=== PATIENT | female | born 1950 | race Caucasian/White ===

== ENCOUNTER 2019-07-15 14:56 | Observation (INO) | payer MEDICARE, BC, OTHER ==
[~2019-07-15] VITALS: Ht 167.6 cm; Wt 124.7 kg
[~2019-07-15 14:56] MED LIST: ARTHRITIS MED; ASPI325 PO; ASPI81CH PO; ATOR10 PO; BP MED; BUSP10 PO; CEPH500 PO; CHOL10002 PO; CLON.5 PO; DICL75ER PO; ERGO400 PO; EXTRA STRENGTH500 MG PO; Esgic Tablet1 EACH PO; GABA300 PO; HYDR1TAB94 PO; IRON; IRON150C PO; OMEP40CA12 PO; OXYACE5T PO; PRED20 PO; Protonix40 MG PO; ROXICODONE5 MG PO; SERT25 PO; SERT50 PO; SOLI5 PO; SULTRIDS PO; UBID100 PO; Vesicare10 MG PO; ZORVOLEX35 MG PO; [UNRECOGNIZED DRUG - OTHER] PO; [UNRECOGNIZED DRUG - OTHER] PO
[2019-07-15 15:45] LABS: BASOPHILS ABSOLUTE AUTO 0.06 K/mm3 (0.00-0.23); BASOPHILS PERCENT AUTO 1 % (0-2); EOSINOPHILS ABSOLUTE AUTO 0.43 K/mm3 (0.00-0.68); EOSINOPHILS PERCENT AUTO 5 % (0-6); Hematocrit 39.8 % (33.0-51.0); Hemoglobin 12.7 g/dL (11.5-16.0); IMMATURE GRAN ABSOLUTE AUTO 0.02 K/mm3 (0.00-0.10); IMMATURE GRAN PERCENT AUTO 0 % (0-1); LYMPHOCYTES ABSOLUTE AUTO 3.51 K/mm3 (0.84-5.20); LYMPHOCYTES PERCENT AUTO 44 % (21-46); MONOCYTES ABSOLUTE AUTO 0.64 K/mm3 (0.16-1.47); MONOCYTES PERCENT AUTO 8 % (4-13); Mean Corpuscular HGB 28.1 pg (26.0-34.0); Mean Corpuscular HGB Conc 31.9 g/dL (31.5-36.5); Mean Corpuscular Volume 88 fL (80-100); Mean Platelet Volume 11.8 fL (9.1-12.4); NEUTROPHILS ABSOLUTE AUTO 3.24 K/mm3 (1.96-9.15); NEUTROPHILS PERCENT AUTO 41 % (41-73); Platelet Count 266 K/mm3 (150-400); RDW Coefficient Variation 14.1 % (11.7-14.2); RDW Standard Deviation 45.4 fL (35.1-46.3); Red Blood Cell Count 4.52 M/mm3 (3.80-5.20)
[2019-07-15 16:08] LABS: Alanine Aminotransfer (ALT/SGP 31 U/L (12-78); Albumin, Blood 3.7 g/dL (3.4-5.0); Alk Phos 118 U/L (50-136); Anion Gap 9 mmol/L (6-16); Aspartate Aminotrans (AST/SGOT 23 U/L (12-37); Bilirubin, Total 0.6 mg/dL (0.1-1.0); Blood Urea Nitrogen 19 mg/dL (8-24); Bun/Creatinine Ratio 20.1 (12.0-20.0); CO2, Blood 27 mmol/L (21-32); Chloride, Blood 104 mmol/L (98-108); Creatinine, Blood 0.95 mg/dL (0.40-1.00); Globulin, Blood 3.8 g/dL (2.2-4.0); Glomerular Filtration Rate >60 (60-); Glucose, Blood 95 mg/dL (70-99); Potassium, Blood 4.1 mmol/L (3.5-5.5); Sodium, Blood 140 mmol/L (136-145); Total Protein, Blood 7.5 g/dL (6.4-8.2); Troponin I <0.015 ng/mL (0.000-0.040)
[2019-07-15] MEDS ORDERED: Cymbalta20 MG PO (19:01)
[2019-07-15] MEDS ORDERED: WATER PILL (19:02)
[2019-07-15] MEDS ORDERED: HYDCHL25 PO (20:08)
[2019-07-15] MEDS ORDERED: DULO60 PO (20:08)
[2019-07-15] MEDS ORDERED: CYAN500 PO (20:09)
[2019-07-15] MEDS ORDERED: FERSU300 PO (20:09)
[2019-07-15] MEDS ORDERED: Aspirin EC81 MG PO (20:09)
[2019-07-15] MEDS ORDERED: Prilosec Otc20 MG PO (20:09)
[2019-07-15] MEDS ORDERED: CALCIUM 600 +1 EA11 PO (20:09)
--- NOTE | 2019-07-16 04:49 | NUR ---
SUMMARY PT HAS BEEN STABLE SINCE ADMISSION TO THE FLOOR. SHE HAS DENIED CP, C/O HEADACHE AND A SMALL AMOUNT OF CHEST PRESSURE. TYLENOL WAS ORDERED AND GIVEN. VSS. NITRO PATCH WAS PLACED TO R CHEST WALL BY [employer] OPERATOR. PT IS RESTING COMFORTABLY AT THIS TIME. CALL LIGHT IN REACH. WCTM
[2019-07-16 06:00] LABS: CHOL/HDL RATIO 3.2; Cholesterol 209 mg/dL (50-200); HDL Cholesterol 65 mg/dL (>39); LDL/HDL RATIO 1.9; Low Density Lipoprotein Chol 126 mg/dL (0-110); Triglycerides 90 mg/dL (30-160); Troponin I <0.015 ng/mL (0.000-0.040); Very Low Density Lipoprot Chol 18 mg/dL (6-32)
--- NOTE | 2019-07-16 17:53 | NUR ---
PT HAS BEEN A/O THROUGHOUT THE SHIFT. PT HAD THE FIRST PORTION OF STRESS TEST COMPLETED THIS AM. PT HAS AMBULATED IN THE [place] ON OWN DURING THIS SHIFT. PT UP IN CHAIR FOR PORTION OF THE SHIFT. PT'S IN ROOM MULTIPLE TIMES DURING THIS SHIFT. PT STATES NO FURTHER NEEDS AT THIS TIME. WILL CONTINUE TO MONITOR.
--- NOTE | 2019-07-17 04:09 | NUR ---
SHIFT SUMMARY PT HAS HAD NO COMPLAINTS OF CHEST PAIN THIS SHIFT. SHE HAS RESTED FOR MOST OF THE NIGHT. SHE HAS BEEN INDEPENDENT IN THE ROOM, UP AND AMBULATING IN THE HALLWAY. SHE DENIES NAUSEA, OR SOB. ALL OTHER SYSTEMS NEGATIVE. NSR ON TELE. SECOND PORTION OF STRESS TEST TO BE DONE TODAY. PT NPO. NO ACUTE CHANGES. WILL CONTINUE TO MONITOR AND REPORT TO ONCOMING RN.
[2019-07-17 04:48] LABS: Albumin, Blood 3.2 g/dL (3.4-5.0); Anion Gap 3 mmol/L (6-16); Blood Urea Nitrogen 18 mg/dL (8-24); Bun/Creatinine Ratio 19.9 (12.0-20.0); CO2, Blood 30 mmol/L (21-32); Calcium, Blood 8.7 mg/dL (8.5-10.1); Chloride, Blood 108 mmol/L (98-108); Glomerular Filtration Rate >60 (60-); Glucose, Blood 103 mg/dL (70-99); Potassium, Blood 4.7 mmol/L (3.5-5.5); Sodium, Blood 141 mmol/L (136-145)
[2019-07-17] MEDS ORDERED: Lipitor20 MG PO (14:29)
--- NOTE | 2019-07-17 14:42 | NUR ---
DISCHARGE: PT EATING AND DRINKING, VOIDING. PT CONT TO DENY CP/SOB. PT HAS HAD STUDIES COMPLETED EARLIER TODAY. PT REPORTS UNDERSTANDING OF DISCHARGE INSTRUCTIONS. PT IV OUT WNL. FAMILY HERE TO GIVE PT RIDE HOME.
== END 2019-07-17 14:55 | disposition home or self-care (01) ==
LOC: ER 14:56 → MEDS 14:57 → ENPENDDIS 07-17 13:28 → MEDS 07-17 14:55
PROVIDERS: Internal Medicine; Nurse Practitioner Acute Care; Physician Assistant; ADMIT Hospitalist
DX: R07.9 Chest pain, unspecified (principal); I10 Essential (primary) hypertension; K21.9 Gastro-esophageal reflux disease without esophagitis; E78.5 Hyperlipidemia, unspecified; F32.9 Major depressive disorder, single episode, unspecified; E66.01 Morbid (severe) obesity due to excess calories; Z68.41 Body mass index [BMI] 40.0-44.9, adult; Z79.899 Other long term (current) drug therapy
CPT/HCPCS: 36415; 71046; 78452; 80053; 80061; 80069; 83880; 84484; 85025; 93005; 93010; 93017; 99285-25; A9270; A9500; G0378; J2785

== ENCOUNTER 2019-08-29 07:44 | Day surgery (SDC) | payer MEDICARE, BC, OTHER ==
[~2019-08-29 07:44] MED LIST changes: +Aspirin EC81 MG PO; +CALCIUM 600 +1 EA11 PO; +CYAN500 PO; +Cymbalta20 MG PO; +DULO60 PO; +FERSU300 PO; +HYDCHL25 PO; +Lipitor20 MG PO; +Prilosec Otc20 MG PO; +WATER PILL
--- NOTE | 2019-08-29 09:25 | NUR ---
PT INTO DAY SURGERY FOR CTA. SINGLE DOSE IV METOPROLOL GIVEN PER ORDERS TO DECREASE HEART RATE TO DESIRED RANGE. TOLERATED PROCEDURE WELL. OUT OF UNIT INDEPENDENTLY. AWAITING SPOUSE. Patient up to Ambulate independently. Gait steady.
== END 2019-08-29 22:37 | disposition home or self-care (01) ==
LOC: CT 07:44 → ORD 07:44 → CT 09:00 → ORD 22:37
DX: I25.10 Atherosclerotic heart disease of native coronary artery without angina pectoris (principal); I10 Essential (primary) hypertension; E66.01 Morbid (severe) obesity due to excess calories; Z79.899 Other long term (current) drug therapy; Z79.82 Long term (current) use of aspirin; Z91.040 Latex allergy status; Z98.84 Bariatric surgery status; Z68.41 Body mass index [BMI] 40.0-44.9, adult
CPT/HCPCS: 75574; Q9967

== ENCOUNTER 2019-11-29 06:38 | Day surgery (SDC) | payer MEDICARE, BC, OTHER ==
[~2019-11-29] VITALS: Ht 170.2 cm; Wt 127.9 kg
[~2019-11-29 06:38] MED LIST changes: +FERATE240 MG PO; +OMEPRAZOLE20 MG PO; +VITAMIN B122500 MCG PO; +VITAMIN D350000 UNIT PO
== END 2019-11-29 08:18 | disposition home or self-care (01) ==
LOC: ORSCSDS 06:38
PROVIDERS: Ophthalmology
PROC: 08RJ3JZ Replacement of Right Lens with Synthetic Substitute, Percutaneous Approach (ICD-10-PCS; principal; 2019-11-29 08:00)
DX: H25.11 Age-related nuclear cataract, right eye (principal); Z86.73 Personal history of transient ischemic attack (TIA), and cerebral infarction without residual deficits; E78.00 Pure hypercholesterolemia, unspecified; I10 Essential (primary) hypertension; Z79.82 Long term (current) use of aspirin; Z79.899 Other long term (current) drug therapy
CPT/HCPCS: J2250; J3010; V2632

== ENCOUNTER 2022-02-04 07:55 | Day surgery (SDC) | payer MEDICARE, BC, OTHER ==
[~2022-02-04] VITALS: Ht 167.6 cm; Wt 145.3 kg
== END 2022-02-04 09:26 | disposition home or self-care (01) ==
LOC: ORSCSDS 07:55
PROVIDERS: Anesthesiology
PROC: 3E0R3BZ Introduction of Anesthetic Agent into Spinal Canal, Percutaneous Approach (ICD-10-PCS; principal; 2022-02-04 09:00)
DX: M54.16 Radiculopathy, lumbar region (principal); M96.1 Postlaminectomy syndrome, not elsewhere classified; M48.061 Spinal stenosis, lumbar region without neurogenic claudication; M79.604 Pain in right leg; I10 Essential (primary) hypertension; F32.A Depression, unspecified; K21.9 Gastro-esophageal reflux disease without esophagitis; E78.00 Pure hypercholesterolemia, unspecified; Z68.43 Body mass index [BMI] 50.0-59.9, adult; E66.01 Morbid (severe) obesity due to excess calories; Z79.82 Long term (current) use of aspirin; Z79.899 Other long term (current) drug therapy
CPT/HCPCS: J1040

== ENCOUNTER → 2022-06-24 | Outpatient (CLI) | payer MEDICARE, BC, OTHER | END | disposition home or self-care (01) | LOC: LAB SHORT 10:49 → PLD 10:49 | DX: L82.1 Other seborrheic keratosis (principal) | CPT/HCPCS: 88305 ==

== ENCOUNTER → 2025-02-01 | Outpatient (CLI) | payer MEDICARE, BC, OTHER ==
[2025-02-01 10:36] LABS: BASOPHILS ABSOLUTE AUTO 0.03 K/mm3 (0.00-0.23); BASOPHILS PERCENT AUTO 0 % (0-2); EOSINOPHILS ABSOLUTE AUTO 0.04 K/mm3 (0.00-0.68); EOSINOPHILS PERCENT AUTO 0 % (0-6); Hematocrit 39.9 % (33.0-51.0); Hemoglobin 13.3 g/dL (11.5-16.0); IMMATURE GRAN ABSOLUTE AUTO 0.08 K/mm3 (0.00-0.10); IMMATURE GRAN PERCENT AUTO 1 % (0-1); LYMPHOCYTES ABSOLUTE AUTO 1.23 K/mm3 (0.84-5.20); LYMPHOCYTES PERCENT AUTO 9 % (21-46); MONOCYTES ABSOLUTE AUTO 1.39 K/mm3 (0.16-1.47); MONOCYTES PERCENT AUTO 10 % (4-13); Mean Corpuscular HGB 28.2 pg (26.0-34.0); Mean Corpuscular HGB Conc 33.3 g/dL (31.5-36.5); Mean Corpuscular Volume 85 fL (80-100); Mean Platelet Volume 11.7 fL (9.1-12.4); NEUTROPHILS ABSOLUTE AUTO 11.48 K/mm3 (1.96-9.15); NEUTROPHILS PERCENT AUTO 81 % (41-73); Platelet Count 228 K/mm3 (150-400); RDW Coefficient Variation 14.1 % (11.7-14.2); RDW Standard Deviation 43.4 fL (35.1-46.3); Red Blood Cell Count 4.71 M/mm3 (3.80-5.20); White Blood Cell Count 14.25 K/mm3 (4.00-11.30)
[2025-02-01 10:48] LABS: Albumin, Blood 3.3 g/dL (3.4-5.0); Albumin/Globulin Ratio 0.7 (0.8-1.8); Bilirubin, Total 1.2 mg/dL (0.1-1.0); Bun/Creatinine Ratio 10.3 (12.0-20.0); Calcium, Blood 9.3 mg/dL (8.5-10.1); Creatinine, Blood 1.75 mg/dL (0.40-1.00); Globulin, Blood 4.6 g/dL (2.2-4.0); Magnesium, Blood 1.5 mg/dL (1.6-2.4); Total Protein, Blood 7.9 g/dL (6.4-8.2)
== END ==
LOC: LAB 10:30 → LAB SHORT 10:30
PROVIDERS: Chiropractor
DX: N39.0 Urinary tract infection, site not specified (principal); R31.9 Hematuria, unspecified
CPT/HCPCS: 80053; 83735; 85025; 87077; 87086; 87186